=== PATIENT | male | born 2005 | race Caucasian/White ===

== ENCOUNTER 2025-01-25 11:17 | Outpatient (REF) | payer OTHER, SELFPAY ==
[2025-01-25 13:02] LABS: MANUAL DIFF FLAG NO
[2025-01-25 13:17] LABS: Basophils Percent Auto 0.5 % (0-2); Eosinophils Absolute Auto 0.2 X10*3/uL (0.0-0.4); Eosinophils Percent Auto 2.5 % (0-4); Hematocrit 44.1 % (42.0-52.0); Hemoglobin 14.6 g/dl (14.0-18.0); Imm Gran Abs Auto 0.02 X10*3/uL (0.00-0.03); Imm Gran Pct Auto 0.3 % (0.0-0.4); Lymphocytes Percent Auto 13.5 % (20-40); Mean Corpuscular HGB Conc 33.1 g/dl (31.0-36.0); Mean Corpuscular Hemoglobin 28.2 pg (27.0-33.0); Mean Corpuscular Volume 85.3 fL (80.0-98.0); Mean Platelet Volume 8.9 fL (9.4-12.4); Monocytes Absolute Auto 0.7 X10*3/uL (0.1-1.2); Monocytes Percent Auto 9.8 % (2-11); Neutrophils Absolute Auto 5.5 x10*3/uL (2.0-8.3); Neutrophils Percent Auto 73.4 % (45-73); Platelet Count 443 X10*3/uL (160-400); Red Blood Count 5.17 X10*6/uL (4.60-5.80); Red Cell Distribution Width 12.4 % (11.0-16.0); White Blood Count 7.5 X10*3/uL (4.8-10.8)
[2025-01-25 13:39] LABS: Alanine Aminotransferase 11 U/L (0-40); Albumin Level 4.3 g/dL (3.5-5.0); Alkaline Phosphatase 92 U/L (39-117); Anion Gap 11 (12-20); Aspartate Amino Transferase 17 U/L (5-37); Bilirubin Total 0.3 mg/dL (0.0-1.0); Blood Urea Nitrogen 8 mg/dL (9-16); Calcium 9.3 mg/dL (8.4-10.2); Carbon Dioxide 26 mmol/L (22-29); Chloride 106 mmol/L (96-108); Estimated Glomerular Filt Rate > 60; Glucose Random 95 mg/dL (60-115); Potassium 4.5 mmol/L (3.3-5.1); Sodium 138 mmol/L (135-145); Total Protein 8.7 g/dL (6.5-8.0)
--- OUTSIDE RECORDS SUMMARY | 2025-01-25 13:42 | XMS_ITS | Clinical Summary ---
Author Organization [facility] ity Address [address] [place] [address] Care Team Providers Care Rehabilitation Specialist Name Role Phone Unavailable Primary Care Provider Unavailabl e Social History Tobacco Use Types Packs/Day Years Used Date Smoking Tobacco: Never Assessed Sex and Gender Information Value Date Recorded Sex Assigned at Not on file Legal Sex Male 11:06 AM EDT Gender Identity Not on file Sexual Orientation Not on file Plan of Treatment Health Maintenance Due Date Last Done Comments Varicella Vaccines (1 of 2 - 13+ 2-dose series) 02/02/2017 HPV Vaccines (1 - Male 3-dos e series) 02/02/2019 Meningococcal B Vacine (1 of 2 - Standard) 2020 DTaP,Tdap,and Td Vaccines (1 - Tdap) 02/02/2023 Hepatitis B Vaccines (1 of 3 - 19+ 3-dose series) 02/02/2023 Annual Well Child Visit (3-2 1 years old) 06/21/2024 Depression Screening 06/21/2024 HIV Screening 06/21/2024 Hepatitis C Screening 06/21/2024 Social Influencers of Health Screening 06/21/2024 COVID-19 Vaccine (1 - 2023-2 5 season) 2024 Influenza Vaccine (#1) 2024 HIB Vaccines Aged Out No longer eligi ble based on patient's age to complete this topic Hepatitis A Vaccines Aged Out No long er eligible based on patient's age to complete this topic IPV Vaccines Aged Out No longer eligi ble based on patient's age to complete this topic MMR Vaccines Aged Out No longer eligi ble based on patient's age to complete this topic Meningococcal ACWY Vaccine Aged Out N o longer eligible based on patient's age to complete this topic Pneumococcal Vaccine: Pediat rics (0 to 5 Years) and At-Risk Patients (6 to 64 Years) Aged Out No longer eligible b ased on patient's age to complete this topic RSV Immunization Patients Un ricky 20 months Aged Out No longer eligible b ased on patient's age to complete this topic
[2025-01-26 07:54] LABS: Immunoglobulin A 206 mg/dL (47-310)
[2025-01-26 21:23] LABS: Gliadin Deamidated IgA Ab <1.0 U/mL; Gliadin Deamidated IgG Ab <1.0 U/mL; Transglutaminase Ab IgG <1.0 U/mL; Transglutaminase IgA <1.0 U/mL
[2025-01-30 23:52] LABS: Endomysial IgA Antibody Negative (Negative)
== END 2025-01-25 11:18 | disposition home or self-care (01) ==
LOC: HO.10HDL 11:17
PROVIDERS: Visit Provider Internal Medicine
DX: R10.9 Unspecified abdominal pain (principal); R14.0 Abdominal distension (gaseous); R63.4 Abnormal weight loss; Z00.6 Encounter for examination for normal comparison and control in clinical research program
CPT/HCPCS: 36415; 80053; 82784; 84443; 85025; 86231; 86258; 86364

== ENCOUNTER 2025-01-27 08:58 | Inpatient (IN) | payer OTHER, SELFPAY ==
--- NOTE | ~2025-01-27 | CT_ITS ---
EXAMINATION: CT ABDOMEN AND PELVIS WITH CONTRAST CLINICAL INFORMATION: Follow-up enteritis. COMPARISON: None available. TECHNIQUE: Multidetector volumetric images were obtained from the superior aspect of the liver through the pubic symphysis following administration 85 mL of Omnipaque 350 intravenous contrast. Sagittal and coronal reformatted images were obtained on the technologist's workstation. Oral contrast: No This CT examination was performed using dose optimization techniques as appropriate, variously including the following: *Automated exposure control *Adjustment of mA and/or kV according to patient size (this includes techniques or standardized protocols for targeted exams where dose is matched to indication/reason for exam; i.e. extremities or head) *Use of iterative reconstruction technique FINDINGS: LUNG BASES: The visualized lung bases are unremarkable. LIVER, GALLBLADDER, AND BILIARY TREE: The liver is normal in size, shape, and attenuation. There is a 9 mm hypodensity right posterior hepatic lobe adjacent to the diaphragm. No additional lesions seen. No intrahepatic ductal dilatation. Gallbladder is unremarkable with no evidence of radiopaque gallstones, gallbladder wall thickening, or obvious pericholecystic inflammatory changes. PANCREAS: Unremarkable. SPLEEN: Unremarkable. ADRENAL GLANDS: Unremarkable. KIDNEYS AND URETERS: The kidneys are normal in size, shape, and attenuation. No hydronephrosis, hydroureter, or calculi seen. No perinephric stranding. BLADDER: Unremarkable. GASTROINTESTINAL TRACT: The stomach is nondistended. Diffuse mural thickening involving second distal and terminal ileal segment in the right upper quadrant on image 43/95 and several additional segments of the right abdomen suggestive of inflammatory bowel disease. There is no extraluminal contrast seen to suspect any perforation. Mild prominence and dilation of the proximal ileal loops with oral contrast is noted. The jejunal loops are normal caliber. There is moderate stool in colon likely secondary to decreased peristalsis. ABDOMINAL WALL: No significant hernia is appreciated. LYMPH NODES: Normal. VASCULAR: The abdominal aorta is of normal caliber. PELVIC VISCERA: There is no free fluid. No abnormal pelvic lymph nodes. No hernia visualized. OSSEOUS STRUCTURES: No aggressive lytic or sclerotic process seen. CT/CT abdomen pelvis w IV con IMPRESSION: Diffuse mural thickening involving distal and terminal ileum with adjacent peritoneal fat stranding. There is mild prominence of the proximal ureter in jejunal loops. Some fecal residue is seen in the dilated segments of distal ileum. No extraluminal contrast extravasation seen. Findings consistent inflammatory bowel disease. No additional areas of abnormality seen. No radiopaque urolith or hydronephrosis. Mild constipation likely secondary to decreased peristalsis. Fleischner guidelines were followed. Electronically signed by: Abimael Martinez MD 01/30/2025 03:47 PM EST
--- NOTE | ~2025-01-27 | CT_ITS ---
CLINICAL HISTORY: abd pain, WBC count CT ABDOMEN AND PELVIS WITH CONTRAST Comparison: None Findings: The lung bases are clear. Unremarkable gallbladder and solid organs. No urolithiasis. No bowel obstruction, pneumoperitoneum, or pneumatosis. Multiple dilated and thick-walled small bowel loops inclusive of the terminal ileum are associated with diffuse mesenteric edema and numerous small reactive mesenteric lymph nodes. Mild ascites in the abdomen and pelvis with no definite organized fluid collection. Thick-walled appendix is identified. Prostate and urinary bladder unremarkable. The bones are intact. IMPRESSION: 1. Inflammatory changes throughout the small bowel with multiple dilated small bowel loops. Ileus versus partial/early small bowel obstruction. 2. Thick-walled appendix secondary to reactive changes versus primary appendicitis. 3. Mild ascites in the abdomen and pelvis. No definite peritoneal abscess. This document has been electronically signed by: Ashely Carney DO on 01/27/2025 14:54:10
[2025-01-27 09:20] VITALS: BP 144/95; PULSE 124; RESP 18; TEMP 36.6; O2SAT 98; BMI 24.6
[2025-01-27 10:27] LABS: Basophils Percent Auto 0.2 % (0-2); Eosinophils Percent Auto 0.1 % (0-4); Hematocrit 42.2 % (42.0-52.0); Hemoglobin 14.4 g/dl (14.0-18.0); Imm Gran Abs Auto 0.09 X10*3/uL (0.00-0.03); Imm Gran Pct Auto 0.5 % (0.0-0.4); Lymphocytes Absolute Auto 0.7 X10*3/uL (1.2-4.9); Lymphocytes Percent Auto 3.7 % (20-40); MANUAL DIFF FLAG SCAN; Mean Corpuscular HGB Conc 34.1 g/dl (31.0-36.0); Mean Corpuscular Hemoglobin 28.5 pg (27.0-33.0); Mean Corpuscular Volume 83.6 fL (80.0-98.0); Mean Platelet Volume 8.6 fL (9.4-12.4); Monocytes Absolute Auto 2.1 X10*3/uL (0.1-1.2); Monocytes Percent Auto 10.5 % (2-11); Neutrophils Absolute Auto 16.9 x10*3/uL (2.0-8.3); Platelet Count 376 X10*3/uL (160-400); Red Blood Count 5.05 X10*6/uL (4.60-5.80); Red Cell Distribution Width 12.5 % (11.0-16.0); SCAN SMEAR FLAG 1; White Blood Count 19.8 X10*3/uL (4.8-10.8)
[2025-01-27 10:28] LABS: Appearance Urine Clear; Color Urine Dark Yellow; Glucose Urine UA Negative (Negative); Leukocyte Esterase Urine Negative (Negative); Nitrite Urine Negative (Negative); PH 5.5 (5.0-9.0); Specific Gravity - Urine >= 1.030 (1.005-1.025); UMIC TRIGGER UACC YES; Urine Blood Negative (Negative); Urine Ketones >=160 mg/dL (Negative); Urine Protein 30 (1+) mg/dL (Neg-Trace)
[2025-01-27 10:40] LABS: Bacteria Urine None Seen (None Seen); Hyaline Casts Urine 0-2 /LPF (0-2); RBC Urine 0-2 /HPF (0-2); Squamous Epithelial Cell Urine 0-2 /HPF (0-2); WBC Urine 0-5 /HPF (0-5)
[2025-01-27 10:47] LABS: SLIDE REVIEW VERIFIED
[2025-01-27 10:53] LABS: Alanine Aminotransferase 6 U/L (0-40); Albumin Level 4.2 g/dL (3.5-5.0); Alkaline Phosphatase 95 U/L (39-117); Anion Gap 14 (12-20); Aspartate Amino Transferase 14 U/L (5-37); Bilirubin Direct 0.5 mg/dL (0.0-0.5); Bilirubin Total 1.1 mg/dL (0.0-1.0); Blood Urea Nitrogen 7 mg/dL (9-16); Calcium 9.5 mg/dL (8.4-10.2); Carbon Dioxide 22 mmol/L (22-29); Chloride 99 mmol/L (96-108); Estimated Glomerular Filt Rate > 60; Glucose Random 119 mg/dL (60-115); Lipase 9 U/L (8-78); Potassium 4.3 mmol/L (3.3-5.1); Sodium 131 mmol/L (135-145); Total Protein 8.6 g/dL (6.5-8.0)
[2025-01-27 12:15] LABS: Magnesium 1.8 mg/dL (1.6-2.6)
[2025-01-27] MEDS: Ketorolac Tromethamine 15 MG/ML VIAL IVPUSH (12:15)
[2025-01-27] MEDS: Lactated Ringers 1,000 ML 999 ML IV ×2 (12:15)
[2025-01-27] MEDS: Piperacillin Sodium/Tazobactam 3.375 GM in 0.9 % Sodium Chloride 50 ML IV ×2 (12:15→18:43)
[2025-01-27] MEDS: ondansetron HCL 4 MG/2 ML VIAL IVPUSH (12:16)
--- NOTE | 2025-01-27 12:30 | ED.ABDPAIN ---
HPI - Abdominal Pain General Chief Complaint: Abdominal Pain Stated Complaint: abd pain Time Seen by Provider: 01/27/25 11:54 Source: patient, family and old records reviewed Mode of arrival: ambulatory Limitations: no limitations History of Present Illness ED Provider: SUMANTH HPI narrative: 19 yo male with PMH of issues of bowel problems in past who states he had a normal colonoscopy recently with his doctor. He saw his PCP yesterday for lower abdominal pain and was started on bentyl - it is not helping. He feels like he cannot eat or drink now and didn't sleep due to pain last night. He has not had a fever. He has nausea but no vomiting and he denies diarrhea. He is passing gas. He has never had surgery. His pain is worse than usual. MD elicited complaint: abdominal pain Pertinent past history: none Onset (ago): week(s) Pain Consistency: intermittent Location: RLQ, LLQ and suprapubic Severity: severe Quality: aching Radiation: none Migration to: no migration Exacerbating factors: movement Relieving factors: nothing Context: history of similar episodes Associated symptoms: nausea Related Data Allergies Allergy/AdvReac Type Severity Reaction Status Date / Time No Known Allergies Allergy Verified 01/27/25 09:22 Review of Systems Review of Systems Constitutional : No Weight loss, No Fever, No Chills ENT/Mouth : No sore throat, No Rhinorrhea Eyes: No Swelling, No Redness Cardiovascular : No Chest Pain, No SOB, NoEdema Respiratory : No Cough, No Sputum, No Wheezing Gastrointestinal : Positive Nausea, no Vomiting, no Diarrhea, positive abdominal Pain, No Hematochezia, No Melena Genitourinary : No Dysuria, No Urinary Frequency, No Hematuria, No Urgency Musculoskeletal : No joint pain, No Myalgias, No Joint Swelling Skin : No Skin Lesions, No rash Neuro : No Weakness, No Numbness, No Dizziness, No Headache All other systems reviewed and are negative. [facility] Past Medical History Attestation statement: The following information was validated with the patient. Source: old records reviewed Medical History (Updated 01/27/25 @ 15:20 by Sona Elmore DO) IBS (irritable bowel syndrome) Social History Social History Advance Directives: No Advance Directives Information Provided: Yes Physical Exam ED Vital Signs: Vital Signs - 24 hr 01/27/25 09:20 Temperature 98 F Pulse Rate 124 H Respiratory Rate 18 Blood Pressure 144/95 H Pulse Oximetry 98 Oxygen Delivery Method Room Air BMI result Body Mass Index 24.6 Appearance: Alert. Oriented X3. No acute distress. Eyes: Pupils equal, round and reactive to light. ENT: Pharynx normal. Neck: Normal inspection. Neck supple. CVS: Normal heart rate and rhythm. Pulses normal. Respiratory: No respiratory distress. Breath sounds normal. Abdomen: Soft and moderate lower abdominal ttp mild guarding no rebound Skin: Skin warm and dry. Normal skin color. Normal skin turgor. Extremities: No lower extremity edema. No calf ttp Neuro: Oriented X 3. No motor deficit. No sensory deficit. CN2-12 intact Medical Decision Making Medical Decision Making [facility] Narrative: 19 yo male with hx of abdominal pain in the past now here with worsening of pain and cannot sleep he has moderate diffusely lower ttp at this time given his HR and elevated WBC count I have ordered IVF, zosyn in case of appendicitis, CT scan as well, IVF and IV toradol or pain. Possible appendicitis, mass, obstruction, renal colic, diverticular ds. Differential Diagnosis Differential Diagnoses: The differential diagnosis associated with the presentation includes colitis, appendicitis, obstruction, volvulus, diverticular disease Admission/Observation Consideration of admission/observation: Escalation of care including admission/observation considered Dr. Bhardwaj to admit patient Consult Healthcare Provider Management of the patient was discussed with: Information Assurance Manager Dr. Bhardwaj to admit Lab Data [facility] Lab Attestation statement: I reviewed the patient's lab results. 01/27/25 10:18 01/27/25 10:18 Labs: Lab Results 01/27/25 01/27/25 Range/Units 10:18 12:04 WBC 19.8 H (4.8-10.8) X10*3/uL RBC 5.05 (4.60-5.80) X10*6/uL Hgb 14.4 (14.0-18.0) g/dl Hct 42.2 (42.0-52.0) % MCV 83.6 (80.0-98.0) fL MCH 28.5 (27.0-33.0) pg MCHC 34.1 (31.0-36.0) g/dl RDW 12.5 (11.0-16.0) % Plt Count 376 (160-400) X10*3/uL MPV 8.6 L (9.4-12.4) fL Immature Gran % (Auto) 0.5 H (0.0-0.4) % Neut % (Auto) 85.0 H (45-73) % Lymph % (Auto) 3.7 L (20-40) % [place] % (Auto) 10.5 (2-11) % Eos % (Auto) 0.1 (0-4) % Baso % (Auto) 0.2 (0-2) % Lymph # (Auto) 0.7 L (1.2-4.9) X10*3/uL [place] # (Auto) 2.1 H (0.1-1.2) X10*3/uL Eos # (Auto) 0.0 (0.0-0.4) X10*3/uL Baso # (Auto) 0.0 (0.0-0.2) X10*3/uL Abs Immat Gran (auto) 0.09 H (0.00-0.03) X10*3/uL Absolute Neuts (auto) 16.9 H (2.0-8.3) x10*3/uL Absolute Nucleated RBC 0.000 (0.0-0.012) X10*3/uL Nucleated RBC % (auto) 0.0 (0.0-0.2) /100WBC Smear Tech's Comments VERIFIED Sodium 131 L (135-145) mmol/L Potassium 4.3 (3.3-5.1) mmol/L Chloride 99 (96-108) mmol/L Carbon Dioxide 22 (22-29) mmol/L Anion Gap 14 (12-20) BUN 7 L (9-16) mg/dL Creatinine 0.75 (0.5-1.4) mg/dL Estim Creat Clear Calc 152.0 Estimated GFR > 60 Random Glucose 119 H (60-115) mg/dL Lactic Acid 1.4 (0.5-2.0) mmol/L Calcium 9.5 (8.4-10.2) mg/dL Magnesium 1.8 (1.6-2.6) mg/dL Total Bilirubin 1.1 H (0.0-1.0) mg/dL Direct Bilirubin 0.5 (0.0-0.5) mg/dL AST 14 (5-37) U/L ALT 6 (0-40) U/L Alkaline Phosphatase 95 (39-117) U/L Total Protein 8.6 H (6.5-8.0) g/dL Albumin 4.2 (3.5-5.0) g/dL Lipase 9 (8-78) U/L Urine Color Dark Yellow Urine Appearance Clear Urine pH 5.5 (5.0-9.0) Ur Specific [place] >= 1.030 H (1.005-1.025) Urine Protein 30 (1+) H (Neg-Trace) mg/dL Urine Glucose (UA) Negative (Negative) mg/dL Urine Ketones >=160 (Negative) mg/dL Urine Blood Negative (Negative) Urine Nitrite Negative (Negative) Ur Leukocyte Esterase Negative (Negative) Urine RBC 0-2 (0-2) /HPF Urine WBC 0-5 (0-5) /HPF Ur Squamous Epith Cells 0-2 (0-2) /HPF Urine Bacteria None Seen (None Seen) Hyaline Casts 0-2 (0-2) /LPF Independent Interpretation I performed an independent interpretation of an: CT Scan (+ inflammed bowel) Radiology Impression Discussion of test interpretation with radiology: I have reviewed the radiologist's reading. Independent Historian Clinical information obtained from an independent historian. History obtained from or confirmed by: Parent Medications Administered Discontinued Medications Generic Name Dose Route Start Last Admin Trade Name Freq PRN Reason Stop Dose Admin Lactated Ringer's 1,000 mls @ 999 mls/hr 01/27/25 12:00 01/27/25 12:15 Lr IV 01/27/25 13:00 999 mls/hr .Q1H1M [place] Administration Piperacillin Sod/Tazobactam 50 mls @ 100 mls/hr 01/27/25 11:51 01/27/25 12:15 Sod 3.375 gm/ Sodium Chloride IV 01/27/25 12:20 100 mls/hr ONCE ONE Administration Lactated Ringer's 1,000 mls @ 999 mls/hr 01/27/25 11:55 01/27/25 12:15 Lr IV 01/27/25 12:55 999 mls/hr .Q1H1M ONE Administration Iohexol 85 ml 01/27/25 14:04 01/27/25 14:05 Iohexol 350 Mg/Ml 100 Ml Infus..Btl IV 01/27/25 14:05 85 ml ONCE ONE Administration Ketorolac Tromethamine 15 mg 01/27/25 11:50 01/27/25 12:15 Ketorolac Tromethamine 15 Mg/Ml Vial IVPUSH 01/27/25 11:51 15 mg ONCE ONE Administration Ondansetron HCl 4 mg 01/27/25 11:50 01/27/25 12:16 Ondansetron Hcl 4 Mg/2 Ml Vial IVPUSH 01/27/25 11:51 4 mg ONCE ONE Administration Discharge Plan Discharge Clinical Impression: Abdominal pain, Elevated WBC count, Nausea & vomiting Patient Disposition: Admitted As Inpatient Print Language: Estonian
[2025-01-27 12:37] LABS: Lactic Acid 1.4 mmol/L (0.5-2.0)
[2025-01-27] MEDS: iohexoL 350 MG/ML 100 ML INFUS..BTL 85 ML IV (14:05)
[2025-01-27] MEDS: Dextrose 5 % and Lactated Ring 1,000 ML 125 ML IVCONT (15:57)
[2025-01-27 16:09] VITALS: BP 128/75; PULSE 98; RESP 16; TEMP 38.2; O2SAT 99
[2025-01-27] MEDS: Acetaminophen 1,000 MG/100 ML PIGGYBACK 400 MG IV (16:14)
--- NOTE | 2025-01-27 17:06 | PHA.MEDREC ---
Addendum entered by Elina Curiel francisco 01/27/25 17:08: Reviewed by pharmacist Original Note: Pharmacy Consult ? Medication Reconciliation Pharmacy has completed the medication reconciliation. Spoke with patient to confirm. He said he started taking it , last had yesterday. He does not take any OTC.
[2025-01-27 18:46] VITALS: TEMP 37.3
[2025-01-27 20:31] VITALS: BP 127/69; PULSE 92; RESP 16; TEMP 37.4; O2SAT 99
[2025-01-28] VITALS (8 sets, daily range): BP systolic 108–135; BP diastolic 52–74; PULSE 77–108; RESP 14–20; TEMP 36.6–38.9; O2SAT 96–99; BMI 24.8
[2025-01-28] MEDS: Dextrose 5 % and Lactated Ring 1,000 ML 125 ML IVCONT ×4 (00:12→23:55)
[2025-01-28] MEDS: Piperacillin Sodium/Tazobactam 3.375 GM in 0.9 % Sodium Chloride 50 ML IV ×5 (00:13→23:55)
[2025-01-28] MEDS: 0.9 % Sodium Chloride Flush 3 ML SYRINGE IVFLUSH (00:13)
[2025-01-28] MEDS: Acetaminophen 1,000 MG/100 ML PIGGYBACK 400 MG IV ×2 (01:03→13:59)
[2025-01-28] MEDS: oxyCODONE HCl Immed Release 5 MG TABLET PO (06:21)
--- NOTE | 2025-01-28 06:54 | PC.NURSE ---
pt rested comfortably throughout the night, reports pain is much less than yesterday but did have pain while moving and palpating, pt medicated per MAR. pt has been NPO
[2025-01-28 07:02] LABS: MANUAL DIFF FLAG NO
[2025-01-28 07:04] LABS: Basophils Percent Auto 0.2 % (0-2); Eosinophils Percent Auto 0.3 % (0-4); Hemoglobin 12.2 g/dl (14.0-18.0); Imm Gran Abs Auto 0.05 X10*3/uL (0.00-0.03); Imm Gran Pct Auto 0.4 % (0.0-0.4); Lymphocytes Absolute Auto 0.8 X10*3/uL (1.2-4.9); Lymphocytes Percent Auto 6.2 % (20-40); Mean Corpuscular Volume 85.1 fL (80.0-98.0); Mean Platelet Volume 8.8 fL (9.4-12.4); Monocytes Absolute Auto 1.4 X10*3/uL (0.1-1.2); Monocytes Percent Auto 11.3 % (2-11); Neutrophils Absolute Auto 10.1 x10*3/uL (2.0-8.3); Neutrophils Percent Auto 81.6 % (45-73); Platelet Count 270 X10*3/uL (160-400); Red Blood Count 4.35 X10*6/uL (4.60-5.80); Red Cell Distribution Width 12.5 % (11.0-16.0); White Blood Count 12.4 X10*3/uL (4.8-10.8)
--- NOTE | 2025-01-28 08:06 | PM.HPGS ---
History of Present Illness History of Present Illness Date of Service: 01/28/25 Chief complaint: abdominal pain, possible appendicitis Narrative: 19-year-old male patient presenting with complaints of lower abdominal pain beginning approximately 2 days prior to presentation. The pain was associated with nausea without vomiting. The patient reports prior history of similar symptoms with intermittent sharp pain followed by resolution. She was recently admitted to [facility] at which point a colonoscopy was performed. This apparently revealed no significant findings. Patient's current episode started on and he was seen by his primary care physician. She placed him on Bentyl which has not changed his pain. He subsequently presented to the emergency department last evening and was noted to be tender in the lower abdomen. Laboratories revealed an elevated WBC. CT abdomen and pelvis was significant for inflammatory changes throughout the small bowel with multiple dilated small-bowel loops, possible ileus versus partial/early small-bowel obstruction. A thick-walled appendix was felt to be possibly secondary to reactive changes versus primary appendicitis. Mild ascites in the abdomen and pelvis was noted with no definite peritoneal abscess. He was admitted to the surgical service for IV antibiotics and observation. This morning he does feel improved with decreased abdominal pain. He is afebrile with stable vital signs. Laboratories revealed improvement in the WBC although still elevated. Review of Systems Review of Systems: Yes all other systems are reviewed and are negative Constitutional: Constitutional: Denies chills, Reports fever(s), Denies headache(s), Reports poor appetite and Denies weakness ENT: Denies headache(s) Cardiovascular: Cardiovascular: Denies chest pain, Denies irregular heart rhythm, Denies palpitations and Denies dyspnea Respiratory: Respiratory: Denies cough, Denies excessive phlegm production and Denies dyspnea Gastrointestinal: Gastrointestinal: Reports abdominal pain, Reports bloating, Denies change in bowel habits, Reports constipation, Denies heartburn, Denies diarrhea, Reports nausea and Denies vomiting Genitourinary: Genitourinary: Denies difficulty urinating and Denies urinary frequency Musculoskeletal: Musculoskeletal: Denies back pain, Denies muscle weakness and Denies numbness Integumentary/Breasts: Skin/Breast: Denies changing lesions and Denies unusual bruising Neurologic: Denies headache(s), Denies numbness, Denies paresthesias and Denies weakness Psychiatric: Psychiatric: Denies anxiety and Denies depression Endocrine: Endocrine: Denies palpitations Hematologic/Lymphatic: Hematologic/Lymphatic: Denies lymphadenopathy PMFSH Past Medical History Medical History (Updated 01/28/25 @ 08:12 by Nilton Bhardwaj MD) IBS (irritable bowel syndrome) Social History Social History Patient Tobacco Use Status: Never used Tobacco Smoked in Last 30 Days: No Use of substances other than those prescribed or required for medical reasons: No Advance Directives: No Advance Directives Information Provided: Yes Nutrition Risks: No Nutritional Risk Meds Allergies Allergy/AdvReac Type Severity Reaction Status Date / Time No Known Allergies Allergy Verified 01/27/25 09:22 Active Medications: Current Medications Hydromorphone HCl (Hydromorphone Hcl 0.5 Mg/0.5 Ml Syringe) 0.5 mg IVPUSH Q3H PRN; Protocol PRN Reason: Pain, Severe (Pain Scale 7-10) Acetaminophen (Ofirmev) 1,000 mg in 100 mls @ 400 mls/hr IV Q6H PRN PRN Reason: Pain, Mild 1-3,fever,headache Last Infusion: 01/28/25 01:28 Dose: Infused Dextrose/Lactated Ringer's (D5lr) 1,000 mls @ 125 mls/hr IVCONT .Q8H [facility] Last Admin: 01/28/25 00:12 Dose: 125 mls/hr Piperacillin Sod/Tazobactam (Sod 3.375 gm/ Sodium Chloride) 50 mls @ 100 mls/hr IV Q6H [facility] Last Infusion: 01/28/25 06:53 Dose: Infused Magnesium Hydroxide (Milk Of Magnesia 30 Ml Oral.Susp) 30 ml PO DAILY PRN PRN Reason: Constipation Ondansetron HCl (Ondansetron Hcl 4 Mg/2 Ml Vial) 4 mg IVPUSH QID PRN PRN Reason: Nausea Oxycodone HCl (Oxycodone Hcl Immed Release 5 Mg Tablet) 5 mg PO Q6H PRN PRN Reason: Pain, Moderate(Pain Scale 4-6) Last Admin: 01/28/25 06:21 Dose: 5 mg Sodium Chloride (0.9 % Sodium Chloride Flush 3 Ml Syringe) 3 ml IVFLUSH QSHIFT [facility] Last Admin: 01/28/25 07:53 Dose: Not Given Zolpidem Tartrate (Zolpidem Tartrate 5 Mg Tablet) 5 mg PO BEDTIME PRN PRN Reason: Insomnia Home Medications ?Medication ?Instructions ?Recorded ?Confirmed ?Last Taken ?Type dicyclomine 10 mg capsule 10 mg PO TID 01/27/25 01/27/25 01/26/25 History Physical Exam Vital Signs: Vital Signs: Last Vital Signs Temp 97.9 F 01/28/25 07:24 Pulse 89 01/28/25 07:24 Resp 20 01/28/25 07:24 BP 117/61 01/28/25 07:24 Pulse Ox 97 01/28/25 07:24 O2 Del Method Room Air 01/28/25 07:24 BMI result Body Mass Index 24.6 Const: General: cooperative and no acute distress Nutritional Appearance: thin Orientation/consciousness: patient oriented x3 Limitations: no limitations HEENT: Head: Yes normocephalic and Yes atraumatic Ears: hearing grossly normal bilaterally Resp: Effort & Inspection: normal respiratory effort, no audible wheezes, no cough and no respiratory distress Cardio: Jugular venous distension: no JVD GI: Inspection: Yes normal to inspection Palpation (GI): Soft to palpation, Tenderness to palpation present (GI) in the LLQ and in the RLQ, no guarding, not rigid and No hepatosplenomegaly present Percussion: Yes normal to percussion Auscultation: normal bowel sounds Skin: Other: Warm, dry, no rash Neuro: General: patient oriented x3 Extrem: General: Yes no clubbing, cyanosis or edema Results Results Labs: Short CBC 01/27/25 01/28/25 Range/Units 10:18 06:49 WBC 19.8 H 12.4 H (4.8-10.8) X10*3/uL Hgb 14.4 12.2 L (14.0-18.0) g/dl Hct 42.2 37.0 L (42.0-52.0) % Plt Count 376 270 D (160-400) X10*3/uL BMP 01/27/25 10:18 Sodium 131 L Potassium 4.3 Chloride 99 Carbon Dioxide 22 BUN 7 L Creatinine 0.75 Calcium 9.5 Liver Function 01/27/25 Range/Units 10:18 Total Bilirubin 1.1 H (0.0-1.0) mg/dL Direct Bilirubin 0.5 (0.0-0.5) mg/dL AST 14 (5-37) U/L ALT 6 (0-40) U/L Alkaline Phosphatase 95 (39-117) U/L Albumin 4.2 (3.5-5.0) g/dL Urine 01/27/25 Range/Units 10:18 Urine Color Dark Yellow Urine Appearance Clear Urine pH 5.5 (5.0-9.0) Ur Specific [place] >= 1.030 H (1.005-1.025) Urine Protein 30 (1+) H (Neg-Trace) mg/dL Urine Glucose (UA) Negative (Negative) mg/dL Abdomen CT scan report/results: image reviewed CT scan - pelvis: image reviewed Assessment and Plan (1) Nausea & vomiting: Qualifiers: Vomiting type: unspecified Qualified Code(s): R11.2 - Nausea with vomiting, unspecified Status: Acute (2) Abdominal pain: Qualifiers: Abdominal location: lower abdomen, unspecified Qualified Code(s): R10.30 - Lower abdominal pain, unspecified Status: Acute (3) Enteritis: Status: Acute Plan 19-year-old male patient with complaints of lower abdominal pain which has been intermittent over the last year. Previous workup with colonoscopy was negative. Evaluation in the emergency department revealed abdominal tenderness and laboratories revealed an elevated WBC. CT abdomen and pelvis revealed thickened loops of small bowel with dilated small bowel suggestive of a possible early small bowel obstruction verses ileus, although given his protracted history an enteritis is also possibility. There is changed to the appendix which may be secondary to the above or early appendicitis as well. He has improved this morning after IV antibiotics in the WBC has improved as well. I recommended consultation with Gastroenterology and continued antibiotics. The patient in his family expressed understanding and agree with the plan. I will keep him NPO and on IV fluids for now. Quality Stroke Does the patient have a stroke diagnosis?: No VTE Prior VTE?: No VTE Risk Level:: Surgical - low VTE Device Contraindication: N/A - Device Ordered VTE Drug Contraindication: Treatment Not Indicated Procedures Date of Service Date of Service: 01/28/25
--- NOTE | 2025-01-28 09:51 | PM.GICN ---
History of Present Illness Data of Consult Service Date: 01/28/25 Requesting physician: Nilton Bhardwaj Primary Care Provider: Sally Ortiz MD HPI Reason for consult: enteritis 19-year-old male patient previously well, with no significant health issues who I am seeing for abdominal pain. He noted 2 d of right lower abdo pain going into the back 6/10 in severity, worse with food and associated with constipation, and with nausea. He had CT imaging with multiple dilated small-bowel loops, possible ileus versus partial/early small-bowel obstruction. A thick-walled appendix was felt to be possibly secondary to reactive changes versus primary appendicitis. Mild ascites in the abdomen and pelvis was noted with no definite peritoneal abscess He had recent colonoscopy at [facility] apparently normal also with an EGD as well. He does say he has these attacks on and off for the last 2 years. Today he feels much better and castor no fever, with reduction in pain. Review of Systems Review of Systems: Constitutional : No Weight loss, No Fever, No Chills ENT/Mouth : No sore throat, No Rhinorrhea Eyes: No Swelling, No Redness Cardiovascular : No Chest Pain, No SOB, No Edema Respiratory : No Cough, No Sputum, No Wheezing Gastrointestinal : see HPI Genitourinary : NO Dysuria, No Urinary Frequency, No Hematuria, No Urgency Musculoskeletal : no joint pain, No Myalgias, No Joint Swelling Skin : No Skin Lesions, No rash Neuro : No Weakness, No Numbness, No Dizziness, No Headache Psych : No Anxiety/Panic, No Depression Heme/Lymph: No Bruising, No Lymphadenopathy Endocrine : No Polyuria, No Polydipsia All other systems reviewed and are negative. [facility] Past Medical History Medical History (Updated 01/28/25 @ 08:12 by Nilton Bhardwaj MD) IBS (irritable bowel syndrome) Family History Pertinent family history: no fh of ibd Social History Social History Household Members: Family Housing: House Do you presently have visiting nurse or other home services: No Patient Tobacco Use Status: Never used Tobacco Meds Allergies Allergy/AdvReac Type Severity Reaction Status Date / Time No Known Allergies Allergy Verified 01/27/25 09:22 Active Medications: Current Medications Hydromorphone HCl (Hydromorphone Hcl 0.5 Mg/0.5 Ml Syringe) 0.5 mg IVPUSH Q3H PRN; Protocol PRN Reason: Pain, Severe (Pain Scale 7-10) Acetaminophen (Ofirmev) 1,000 mg in 100 mls @ 400 mls/hr IV Q6H PRN PRN Reason: Pain, Mild 1-3,fever,headache Last Infusion: 01/28/25 01:28 Dose: Infused Dextrose/Lactated Ringer's (D5lr) 1,000 mls @ 125 mls/hr IVCONT .Q8H [facility] Last Admin: 01/28/25 08:08 Dose: 125 mls/hr Piperacillin Sod/Tazobactam (Sod 3.375 gm/ Sodium Chloride) 50 mls @ 100 mls/hr IV Q6H [facility] Last Infusion: 01/28/25 06:53 Dose: Infused Magnesium Hydroxide (Milk Of Magnesia 30 Ml Oral.Susp) 30 ml PO DAILY PRN PRN Reason: Constipation Ondansetron HCl (Ondansetron Hcl 4 Mg/2 Ml Vial) 4 mg IVPUSH QID PRN PRN Reason: Nausea Oxycodone HCl (Oxycodone Hcl Immed Release 5 Mg Tablet) 5 mg PO Q6H PRN PRN Reason: Pain, Moderate(Pain Scale 4-6) Last Admin: 01/28/25 06:21 Dose: 5 mg Sodium Chloride (0.9 % Sodium Chloride Flush 3 Ml Syringe) 3 ml IVFLUSH [facility] Last Admin: 01/28/25 07:53 Dose: Not Given Zolpidem Tartrate (Zolpidem Tartrate 5 Mg Tablet) 5 mg PO BEDTIME PRN PRN Reason: Insomnia Home Medications ?Medication ?Instructions ?Recorded ?Confirmed ?Last Taken ?Type dicyclomine 10 mg capsule 10 mg PO TID 01/27/25 01/27/25 01/26/25 History Physical Exam Vital Signs: Vital Signs: Last Vital Signs Temp 97.9 F 01/28/25 07:24 Pulse 89 01/28/25 07:24 Resp 20 01/28/25 07:24 BP 117/61 01/28/25 07:24 Pulse Ox 97 01/28/25 07:24 O2 Del Method Room Air 01/28/25 07:24 BMI result Body Mass Index 24.6 EXAM: GENERAL: The patient is well developed and nontoxic. VITAL SIGNS:see workflow HEENT: Nonicteric sclerae, PERRLA, EOMI. Oropharynx clear. Moist mucous membranes. Conjunctivae appear well perfused. No thyroid mass. CHEST: Chest wall is nontender. HEART: Regular rate and rhythm without murmurs. LUNGS: Clear to auscultation bilaterally. ABDOMEN: Soft, positive bowel sounds, tender RLQ, no organomegaly.no flank tenderness SKIN: No rash, no excessive bruising, petechiae, or purpura. NEUROLOGIC: Cranial nerves II-XII intact without motor/sensory deficit. Psych: normal affect Results Labs 01/28/25 06:49 01/27/25 10:18 Labs: Short CBC 01/27/25 01/28/25 Range/Units 10:18 06:49 WBC 19.8 H 12.4 H (4.8-10.8) X10*3/uL Hgb 14.4 12.2 L (14.0-18.0) g/dl Hct 42.2 37.0 L (42.0-52.0) % Plt Count 376 270 D (160-400) X10*3/uL BMP 01/27/25 10:18 Sodium 131 L Potassium 4.3 Chloride 99 Carbon Dioxide 22 BUN 7 L Creatinine 0.75 Calcium 9.5 Liver Function 01/27/25 Range/Units 10:18 Total Bilirubin 1.1 H (0.0-1.0) mg/dL Direct Bilirubin 0.5 (0.0-0.5) mg/dL AST 14 (5-37) U/L ALT 6 (0-40) U/L Alkaline Phosphatase 95 (39-117) U/L Albumin 4.2 (3.5-5.0) g/dL Urine 01/27/25 Range/Units 10:18 Urine Color Dark Yellow Urine Appearance Clear Urine pH 5.5 (5.0-9.0) Ur Specific [place] >= 1.030 H (1.005-1.025) Urine Protein 30 (1+) H (Neg-Trace) mg/dL Urine Glucose (UA) Negative (Negative) mg/dL Imaging CT scan - abdomen: Attestation: I personally reviewed and interpreted this imaging study as follows: (dilated and thcikened loops of small bowel, appendix as well) Assessment and Plan (1) Abdominal pain: Qualifiers: Abdominal location: lower abdomen, unspecified Qualified Code(s): R10.30 - Lower abdominal pain, unspecified Status: Acute Plan 1/ Imaging and clinical features 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 Appediceal involvement is rare but can occur. He may still need appendectomy ddx: vascultis, CTD, other infiltrative enteropathies e.g amyloid, lymphoma, sarcoid, eosinophilic, celiac disease, auto immune enteritis PLAN: 1/ cnt with ABX 2/ cnsider repeat CT imaging tomorrow, if appendix still enlarged then consider appendectomy 3/ hold on sterids for the moment 4 check celiac serology Procedures Date of Service Date of Service: 01/28/25
--- NOTE | 2025-01-28 16:25 | MHC.CM.PN ---
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
[2025-01-29] VITALS: BP 132/61; PULSE 84; RESP 16; TEMP 36.6; O2SAT 97
[2025-01-29] MEDS: oxyCODONE HCl Immed Release 5 MG TABLET PO (00:31)
[2025-01-29] MEDS: Piperacillin Sodium/Tazobactam 3.375 GM in 0.9 % Sodium Chloride 50 ML IV ×4 (05:37→23:59)
[2025-01-29 06:24] LABS: MANUAL DIFF FLAG NO
[2025-01-29 06:28] LABS: Basophils Percent Auto 0.3 % (0-2); Eosinophils Absolute Auto 0.2 X10*3/uL (0.0-0.4); Eosinophils Percent Auto 2.5 % (0-4); Hematocrit 32.5 % (42.0-52.0); Hemoglobin 10.9 g/dl (14.0-18.0); Imm Gran Abs Auto 0.05 X10*3/uL (0.00-0.03); Imm Gran Pct Auto 0.5 % (0.0-0.4); Lymphocytes Absolute Auto 0.9 X10*3/uL (1.2-4.9); Lymphocytes Percent Auto 9.6 % (20-40); Mean Corpuscular HGB Conc 33.5 g/dl (31.0-36.0); Mean Corpuscular Hemoglobin 28.9 pg (27.0-33.0); Mean Corpuscular Volume 86.2 fL (80.0-98.0); Mean Platelet Volume 9.5 fL (9.4-12.4); Monocytes Absolute Auto 1.1 X10*3/uL (0.1-1.2); Monocytes Percent Auto 11.1 % (2-11); Neutrophils Absolute Auto 7.2 x10*3/uL (2.0-8.3); Platelet Count 293 X10*3/uL (160-400); Red Blood Count 3.77 X10*6/uL (4.60-5.80); Red Cell Distribution Width 12.5 % (11.0-16.0); White Blood Count 9.5 X10*3/uL (4.8-10.8)
[2025-01-29 07:50] VITALS: BP 124/69; PULSE 77; RESP 16; TEMP 36.7; O2SAT 97
[2025-01-29] MEDS: Dextrose 5 % and Lactated Ring 1,000 ML 125 ML IVCONT ×2 (08:09→17:27)
--- NOTE | 2025-01-29 08:35 | P.PNGS_ITS ---
Subjective Subjective Date of Service: 01/29/25 Interval history: Overall patient feels improved but still is reporting some left lower quadrant abdominal pain. He has not very hungry but denies any nausea or vomiting. Physical Exam 2 Vital Signs: Vital Signs: Last Vital Signs Temp 98.1 F 01/29/25 07:50 Pulse 77 01/29/25 07:50 Resp 16 01/29/25 07:50 BP 124/69 01/29/25 07:50 Pulse Ox 97 01/29/25 07:50 O2 Del Method Room Air 01/29/25 07:50 BMI result Body Mass Index 24.8 Const: General: comfortable and no acute distress Nutritional Appearance: w ell nourished Orientation/consciousness: patient oriented x3 Resp: Effort & Inspection: normal respiratory effort GI: Inspection: Yes normal to inspection Palpation (GI): Soft to palpation, Tenderness to palpation present (GI) in the LLQ, no guarding, not rigid and No hepatosplenomegaly present Skin: General skin exam: no rashes or lesions noted Neuro: General: patient oriented x3 Extrem: General: No edema Objective Data Active Medications Hydromorphone HCl (Hydromorphone Hcl 0.5 Mg/0.5 Ml Syringe) 0.5 mg IVPUSH Q3H PRN; Protocol PRN Reason: Pain, Severe (Pain Scale 7-10) Acetaminophen (Ofirmev) 1,000 mg in 100 mls @ 400 mls/hr IV Q6H PRN PRN Reason: Pain, Mild 1-3,fever,headache Last Infusion: 01/28/25 14:48 Dose: Infused Documented By: SAMMY Dextrose/Lactated Ringer's (D5lr) 1,000 mls @ 125 mls/hr IVCONT .Q8H [facility] Last Admin: 01/29/25 08:09 Dose: 125 mls/hr Documented By: COURTNEY Piperacillin Sod/Tazobactam (Sod 3.375 gm/ Sodium Chloride) 50 mls @ 100 mls/hr IV Q6H [facility] Last Infusion: 01/29/25 06:15 Dose: Infused Documented By: NEHA Magnesium Hydroxide (Milk Of Magnesia 30 Ml Oral.Susp) 30 ml PO DAILY PRN PRN Reason: Constipation Ondansetron HCl (Ondansetron Hcl 4 Mg/2 Ml Vial) 4 mg IVPUSH QID PRN PRN Reason: Nausea Oxycodone HCl (Oxycodone Hcl Immed Release 5 Mg Tablet) 5 mg PO Q6H PRN PRN Reason: Pain, Moderate(Pain Scale 4-6) Last Admin: 01/29/25 00:31 Dose: 5 mg Documented By: NEHA Sodium Chloride (0.9 % Sodium Chloride Flush 3 Ml Syringe) 3 ml IVFLUSH [facility] Last Admin: 01/29/25 08:02 Dose: Not Given Documented By: COURTNEY Non-Admin Reason: IV Running Zolpidem Tartrate (Zolpidem Tartrate 5 Mg Tablet) 5 mg PO BEDTIME PRN PRN Reason: Insomnia Labs 01/29/25 05:23 01/27/25 10:18 Labs: Laboratory Results - last 24 hr 01/27/25 01/29/25 10:18 05:23 MCV 86.2 MCH 28.9 MCHC 33.5 RDW 12.5 Plt Count 293 MPV 9.5 Immature Gran % (Auto) 0.5 H Neut % (Auto) 76.0 H Lymph % (Auto) 9.6 L [place] % (Auto) 11.1 H Eos % (Auto) 2.5 Baso % (Auto) 0.3 Lymph # (Auto) 0.9 L [place] # (Auto) 1.1 Eos # (Auto) 0.2 Baso # (Auto) 0.0 Abs Immat Gran (auto) 0.05 H Absolute Neuts (auto) 7.2 Absolute Nucleated RBC 0.000 Nucleated RBC % (auto) 0.0 C-Reactive Protein 32.00 H Microbiology Microbiology Results: Microbiology 01/27/25 12:03 Blood Culture - Preliminary Blood - Venous No growth after 24 hours. 01/27/25 12:04 Blood Culture - Preliminary Blood - Venous No growth after 24 hours. Procedures Date of Service Date of Service: 01/29/25 Progress Note: A&P Assessment and plan (1) Enteritis: Status: Acute (2) Abdominal pain: Status: Acute Plan 19-year-old male patient with evidence of enteritis and changes in the appendix noted on admission CT abdomen and pelvis found to have an elevated WBC of 19. Patient currently feels improved with only some tenderness in the left lower quadrant on examination. Laboratories revealed normalization of the WBC. Appreciate Dr. Liriano's input. Continue antibiotics. We will start clear liquids today. Time Spent With Patient Time: Total time managing care of this patient today ____ minutes. Quality Stroke Does the patient have a stroke diagnosis?: No VTE Prior VTE?: No VTE Risk Level:: Surgical - low VTE Device Contraindication: N/A - Device Ordered VTE Drug Contraindication: Treatment Not Indicated
--- NOTE | 2025-01-29 14:31 | MHC.CM.PN ---
PT NOT MEDICALLY CLEAR, PER PN, PLAN TO CONTINUE ABX AND START CLEAR LIQUIDS TODAY DCP: HOME NO SERVICES VIA FAMILY TRANSPORT
--- NOTE | 2025-01-29 15:14 | P.PNGI_ITS ---
Subjective Subjective Date of Service: 01/29/25 Interval History: improved abdominal pain much less wants to advance diet no fever no nausea or vomiting Critical Care Time (minutes): 0 Physical Exam 2 Vital Signs: Vital Signs: Last Vital Signs Temp 98.1 F 01/29/25 07:50 Pulse 77 01/29/25 07:50 Resp 16 01/29/25 07:50 BP 124/69 01/29/25 07:50 Pulse Ox 97 01/29/25 07:50 O2 Del Method Room Air 01/29/25 07:50 BMI result Body Mass Index 24.8 EXAM: GENERAL: The patient is well developed and nontoxic. VITAL SIGNS:see workflow HEENT: Nonicteric sclerae, PERRLA, EOMI. Oropharynx clear. Moist mucous membranes. Conjunctivae appear well perfused. No thyroid mass. CHEST: Chest wall is nontender. HEART: Regular rate and rhythm without murmurs. LUNGS: Clear to auscultation bilaterally. ABDOMEN: Soft, positive bowel sounds, mildly tender mid abdomen, no organomegaly.no flank tenderness SKIN: No rash, no excessive bruising, petechiae, or purpura. NEUROLOGIC: Cranial nerves II-XII intact without motor/sensory deficit. Psych: normal affect Objective Data Labs 01/29/25 05:23 01/27/25 10:18 Labs: Laboratory Results - last 24 hr 01/27/25 01/29/25 10:18 05:23 WBC 9.5 RBC 3.77 L Hgb 10.9 L Hct 32.5 L MCV 86.2 MCH 28.9 MCHC 33.5 RDW 12.5 Plt Count 293 MPV 9.5 Immature Gran % (Auto) 0.5 H Neut % (Auto) 76.0 H Lymph % (Auto) 9.6 L [place] % (Auto) 11.1 H Eos % (Auto) 2.5 Baso % (Auto) 0.3 Lymph # (Auto) 0.9 L [place] # (Auto) 1.1 Eos # (Auto) 0.2 Baso # (Auto) 0.0 Abs Immat Gran (auto) 0.05 H Absolute Neuts (auto) 7.2 Absolute Nucleated RBC 0.000 Nucleated RBC % (auto) 0.0 C-Reactive Protein 32.00 H Microbiology Microbiology Results: Microbiology 01/27/25 12:04 Blood - Venous Blood Culture - Preliminary No growth after 48 hours. 01/27/25 12:03 Blood - Venous Blood Culture - Preliminary No growth after 48 hours. Procedures Date of Service Date of Service: 01/29/25 Progress Note: A&P Assessment and plan (1) Enteritis: Status: Acute Plan 1/ Acuite on chronic abdominal pain, possibly crohns disease, with appendiceal involvement, improved today PLAN: 1/ hold steroids for now 2/ cont with ABX, maybe consider steroids after few days, possibly o/p entyvio Time Spent With Patient Time: Total time managing care of this patient today ____ minutes. Quality Stroke Does the patient have a stroke diagnosis?: No VTE Prior VTE?: No VTE Risk Level:: Surgical - low VTE Device Contraindication: N/A - Device Ordered VTE Drug Contraindication: Treatment Not Indicated
[2025-01-29 16:00] VITALS: BP 129/72; PULSE 79; RESP 16; TEMP 36.9; O2SAT 96
[2025-01-30] VITALS: BP 122/66; PULSE 69; RESP 16; TEMP 37.1; O2SAT 98
[2025-01-30] MEDS: 0.9 % Sodium Chloride Flush 3 ML SYRINGE IVFLUSH ×2 (00:35→21:17)
[2025-01-30] MEDS: Piperacillin Sodium/Tazobactam 3.375 GM in 0.9 % Sodium Chloride 50 ML IV ×3 (05:25→17:46)
[2025-01-30] MEDS: Dextrose 5 % and Lactated Ring 1,000 ML 125 ML IVCONT (05:26)
[2025-01-30 07:44] VITALS: BP 135/77; PULSE 72; RESP 16; TEMP 36.4; O2SAT 97
--- NOTE | 2025-01-30 07:59 | P.PNGS_ITS ---
Subjective Subjective Date of Service: 01/30/25 Interval history: Patient reports feeling much improved this morning with no abdominal pain only some mild achiness. He was able to tolerate liquids without nausea or vomiting. Physical Exam 2 Vital Signs: Vital Signs: Last Vital Signs Temp 97.6 F 01/30/25 07:44 Pulse 72 01/30/25 07:44 Resp 16 01/30/25 07:44 BP 135/77 01/30/25 07:44 Pulse Ox 97 01/30/25 07:44 O2 Del Method Room Air 01/30/25 07:44 BMI result Body Mass Index 24.8 Const: General: comfortable and no acute distress Nutritional Appearance: w ell nourished Orientation/consciousness: patient oriented x3 Resp: Effort & Inspection: normal respiratory effort GI: Inspection: Yes normal to inspection Palpation (GI): Soft to palpation, Tenderness to palpation present (GI) in the LLQ, no guarding, not rigid and No hepatosplenomegaly present Skin: General skin exam: no rashes or lesions noted Neuro: General: patient oriented x3 Extrem: General: No edema Objective Data Active Medications Hydromorphone HCl (Hydromorphone Hcl 0.5 Mg/0.5 Ml Syringe) 0.5 mg IVPUSH Q3H PRN; Protocol PRN Reason: Pain, Severe (Pain Scale 7-10) Acetaminophen (Ofirmev) 1,000 mg in 100 mls @ 400 mls/hr IV Q6H PRN PRN Reason: Pain, Mild 1-3,fever,headache Last Infusion: 01/28/25 14:48 Dose: Infused Documented By: SAMMY Dextrose/Lactated Ringer's (D5lr) 1,000 mls @ 125 mls/hr IVCONT .Q8H [facility] Last Admin: 01/30/25 05:26 Dose: 125 mls/hr Documented By: SOHA Piperacillin Sod/Tazobactam (Sod 3.375 gm/ Sodium Chloride) 50 mls @ 100 mls/hr IV Q6H [facility] Last Infusion: 01/30/25 06:14 Dose: Infused Documented By: SOHA Magnesium Hydroxide (Milk Of Magnesia 30 Ml Oral.Susp) 30 ml PO DAILY PRN PRN Reason: Constipation Ondansetron HCl (Ondansetron Hcl 4 Mg/2 Ml Vial) 4 mg IVPUSH QID PRN PRN Reason: Nausea Oxycodone HCl (Oxycodone Hcl Immed Release 5 Mg Tablet) 5 mg PO Q6H PRN PRN Reason: Pain, Moderate(Pain Scale 4-6) Last Admin: 01/29/25 00:31 Dose: 5 mg Documented By: NEHA Sodium Chloride (0.9 % Sodium Chloride Flush 3 Ml Syringe) 3 ml IVFLUSH [facility] [place] Last Admin: 01/30/25 07:07 Dose: Not Given Documented By: COURTNEY Non-Admin Reason: IV Running Zolpidem Tartrate (Zolpidem Tartrate 5 Mg Tablet) 5 mg PO BEDTIME PRN PRN Reason: Insomnia Labs 01/29/25 05:23 01/27/25 10:18 Labs: Laboratory Results - last 24 hr 01/27/25 01/29/25 10:18 15:39 C-Reactive Protein 32.00 H 23.80 H Microbiology Microbiology Results: Microbiology 01/27/25 12:04 Blood Culture - Preliminary Blood - Venous No growth after 48 hours. 01/27/25 12:03 Blood Culture - Preliminary Blood - Venous No growth after 48 hours. Procedures Date of Service Date of Service: 01/30/25 Progress Note: A&P Assessment and plan (1) Enteritis: Status: Acute (2) Abdominal pain: Status: Acute Plan 19-year-old male patient with evidence of enteritis and changes in the appendix noted on admission CT abdomen and pelvis found to have an elevated WBC of 19. The patient's WBC has now normalized and his abdominal symptoms are improving. He tolerated clear liquids without nausea, vomiting or increased abdominal pain. We discussed repeating the CT abdomen and pelvis with contrast today to re- evaluate the area of possible enteritis and appendicitis. He expressed understanding and agrees with the plan. We will restart diet based on the CT findings. Time Spent With Patient Time: Total time managing care of this patient today ____ minutes. Quality Stroke Does the patient have a stroke diagnosis?: No VTE Prior VTE?: No VTE Risk Level:: Surgical - low VTE Device Contraindication: N/A - Device Ordered VTE Drug Contraindication: Treatment Not Indicated
[2025-01-30 08:27] LABS: HBS Num1 0.49 mIU/mL (0-7.99); HBc Num1 0.29 S/CO (0.00-0.79); HBsAGNum1 0.31 S/CO (0.00-0.99); Hepatitis A Antibody IgM 0.15 Index (0-0.79); Hepatitis B Core Antibody Nonreactive (Nonreactive); Hepatitis B Surface Antigen Negative (Negative); ~HepC Num1 0.18 S/CO (0.00-0.79); ~Hepatitis A Antibody IgM Nonreactive (Nonreactive); ~Hepatitis B Surface Antibody NONREACTIVE (Nonreactive); ~Hepatitis C Antibody Nonreactive (Nonreactive)
[2025-01-30] MEDS: iohexoL 350 MG/ML 100 ML INFUS..BTL IV (12:56)
[2025-01-30] MEDS: Barium Sulfate Oral (Mocha) 450 ML ORAL.SUSP 900 ML PO (12:57)
[2025-01-30 15:22] VITALS: BP 121/74; PULSE 70; RESP 18; TEMP 36.9; O2SAT 97
[2025-01-30] MEDS: Dextrose 5 % and Lactated Ring 1,000 ML 50 ML IVCONT (19:15)
[2025-01-30 19:27] VITALS: BP 125/58; PULSE 75; RESP 20; TEMP 37.1; O2SAT 98
[2025-01-30 23:29] VITALS: BP 120/57; PULSE 64; RESP 16; TEMP 36.5; O2SAT 96
[2025-01-31] MEDS: Piperacillin Sodium/Tazobactam 3.375 GM in 0.9 % Sodium Chloride 50 ML IV ×3 (00:01→12:10)
[2025-01-31 08:02] VITALS: BP 123/69; PULSE 74; RESP 18; TEMP 36.4; O2SAT 97
--- NOTE | 2025-01-31 12:28 | PM.PNGS ---
Subjective Subjective Date of Service: 01/31/25 Interval history: Feels well. Denies any abd pain. Has had two BMs, passing flatus. Tolerating liquids and feels hungry. Physical Exam Vital Signs: Vital Signs: Last Vital Signs Temp 97.6 F 01/31/25 08:02 Pulse 74 01/31/25 08:02 Resp 18 01/31/25 08:02 BP 123/69 01/31/25 08:02 Pulse Ox 97 01/31/25 08:02 O2 Del Method Room Air 01/31/25 08:02 BMI result Body Mass Index 24.8 Const: General: comfortable, no acute distress and alert GI: Inspection: Yes normal to inspection and No distended Palpation (GI): Soft to palpation, nontender and no guarding Skin: General skin exam: no rashes or lesions noted Objective Data Active Medications Hydromorphone HCl (Hydromorphone Hcl 0.5 Mg/0.5 Ml Syringe) 0.5 mg IVPUSH Q3H PRN; Protocol PRN Reason: Pain, Severe (Pain Scale 7-10) Acetaminophen (Ofirmev) 1,000 mg in 100 mls @ 400 mls/hr IV Q6H PRN PRN Reason: Pain, Mild 1-3,fever,headache Last Infusion: 01/28/25 14:48 Dose: Infused Documented By: SAMMY Dextrose/Lactated Ringer's (D5lr) 1,000 mls @ 50 mls/hr IVCONT .Q20H [facility] Last Admin: 01/30/25 19:15 Dose: 50 mls/hr Documented By: BETTYE Piperacillin Sod/Tazobactam (Sod 3.375 gm/ Sodium Chloride) 50 mls @ 100 mls/hr IV Q6H [facility] Last Admin: 01/31/25 12:10 Dose: 100 mls/hr Documented By: NAUN Magnesium Hydroxide (Milk Of Magnesia 30 Ml Oral.Susp) 30 ml PO DAILY PRN PRN Reason: Constipation Ondansetron HCl (Ondansetron Hcl 4 Mg/2 Ml Vial) 4 mg IVPUSH QID PRN PRN Reason: Nausea Oxycodone HCl (Oxycodone Hcl Immed Release 5 Mg Tablet) 5 mg PO Q6H PRN PRN Reason: Pain, Moderate(Pain Scale 4-6) Last Admin: 01/29/25 00:31 Dose: 5 mg Documented By: CASTILDaily Sodium Chloride (0.9 % Sodium Chloride Flush 3 Ml Syringe) [facility] Last Admin: 01/31/25 08:24 Dose: Not Given Documented By: NAUN Non-Admin Reason: IV Running Zolpidem Tartrate (Zolpidem Tartrate 5 Mg Tablet) 5 mg PO BEDTIME PRN PRN Reason: Insomnia Labs 01/29/25 05:23 01/27/25 10:18 Procedures Date of Service Date of Service: 01/31/25 Progress Note: A&P Assessment and plan (1) Enteritis: Status: Acute Plan Repeat CT scan yesterday shows persistent diffuse mural thickening but clinically patient is overall improved with resolution of his symptoms and good GI function. Will advance to solid diet and hopefully discharge later today with oral antibiotics if tolerating with outpatient GI follow up. Patient and father comfortable with plan. Time Spent With Patient Time: Total time managing care of this patient today ____ minutes. Quality Stroke Does the patient have a stroke diagnosis?: No VTE Prior VTE?: No VTE Risk Level:: Surgical - low VTE Device Contraindication: N/A - Device Ordered VTE Drug Contraindication: Treatment Not Indicated
--- NOTE | 2025-01-31 12:57 | P.DS_ITS ---
DS: Providers Provider Date of Service: 01/31/25 Date of admission: 01/27/25 15:17 Date of discharge: 01/31/25 Primary care physician: Sally Ortiz MD Attending physician on admission: Nilton Bhardwaj Consults: 01/28/25 08:04 Consult to Gastroenterology Routine Consulting Provider: Rox Liriano Reason for consultation: abdominal pain, possible enteritis Attending physician on discharge: Nilton Bhardwaj DS: Diagnosis Discharge Diagnosis (1) Enteritis: Status: Resolved DS: Summary Hospital Course Hospital Course: HPI AT ADMISSION: 19-year-old male patient presenting with complaints of lower abdominal pain beginning approximately 2 days prior to presentation. The pain was associated with nausea without vomiting. The patient reports prior history of similar symptoms with intermittent sharp pain followed by resolution. She was recently admitted to [facility] at which point a colonoscopy was performed. This apparently revealed no significant findings. Patient's current episode started on and he was seen by his primary care physician. She placed him on Bentyl which has not changed his pain. He subsequently presented to the emergency department last evening and was noted to be tender in the lower abdomen. Laboratories revealed an elevated WBC. CT abdomen and pelvis was significant for inflammatory changes throughout the small bowel with multiple dilated small-bowel loops, possible ileus versus partial/early small-bowel obstruction. A thick-walled appendix was felt to be possibly secondary to reactive changes versus primary appendicitis. Mild ascites in the abdomen and pelvis was noted with no definite peritoneal abscess. This morning he does feel improved with decreased abdominal pain. He is afebrile with stable vital signs. Laboratories revealed improvement in the WBC although still elevated. HOSPITAL COURSE: He was admitted to the surgical service for IV antibiotics and observation. Consultation with Gastroenterology was obtained who felt imaging and clinical features most consistent with relapsing and remitting type of crohns. They recommended continuing conservative measures. The patient had improvement symptomatically. His WBC normalized. He had repeat CT scan abd/pelvis which showed the persistent diffuse mural thickening however his symptoms had resolved and therefore his diet was advanced. On the day of discharge, he was tolerating a solid diet without nausea/vomiting or abdominal pain. He had good GI function. He was hemodynamically stable and his abdomen was benign and soft, nontender. He felt ready for discharge. He was discharged to home on 01/31/25 in stable condition on a course of oral antibiotics and steroid taper. He is to follow up in the office with GI for outpatient EGD/colonoscopy and likely entyvio. Status at Discharge Functional status at discharge: independent ambulation Overall status at discharge: patient is progressing back to baseline Time Attestation Discharge Coordination Time (in mins): 35 Quality: Safe Use of Opioids Does Pt have an Active Cancer Diagnosis on the Problem List?: No Quality: Stroke Does the patient have a stroke diagnosis?: No Physical Exam Vital Signs: Vital Signs: Last Vital Signs Temp 97.6 F 01/31/25 08:02 Pulse 74 01/31/25 08:02 Resp 18 01/31/25 08:02 BP 123/69 01/31/25 08:02 Pulse Ox 97 01/31/25 08:02 O2 Del Method Room Air 01/31/25 08:02 BMI result Body Mass Index 24.8 Const: General: comfortable, no acute distress and alert Orientation/consciousness: patient oriented x3 Resp: Effort & Inspection: normal respiratory effort GI: Inspection: Yes normal to inspection and No distended Palpation (GI): Soft to palpation, nontender and no guarding Skin: General skin exam: no rashes or lesions noted Neuro: General: patient oriented x3 and moves all extremities DS: Data Data Completed and Pending Labs on day of discharge: Laboratory Results - last 24 hr 01/30/25 09:13 TB Test (T-Spot) Com Negative TB Test Nil Control Passed TB Test Panel A 0 TB Test Panel B 1 TB Test Positive Cntrl Passed Discharge Plan Discharge Anticipated Discharge Date/Time: 01/31/25 11:48 Patient Disposition: Home, Self-Care Discharge Diagnosis: enteritis Referrals: Sally Ortiz MD [Primary Care Provider] - 1 Week Rox Liriano MD [Physician] - 1 Week Discharge Medications: New metronidazole 500 mg tablet 500 mg PO TID Qty: 21 0RF levofloxacin 500 mg tablet 500 mg PO DAILY Qty: 7 0RF prednisone 5 mg tablet 5 mg PO DIRECTED Qty: 168 0RF Rx Instructions: see taper instructions 40mg (8 tabs) daily x 1 week 30mg (6 tabs) daily x 1 week 20mg (4 tabs) daily x 1 week 15mg (3 tabs) daily x 1 week 10mg (2 tabs) daily x 1 week 5mg (1 tab) daily x 1 week Continued dicyclomine 10 mg capsule 10 mg PO TID Discharge Orders: Discharge Order (Routine); Ordered 01/31/25 Ordered By: Rosario Fernandes Diet: Advance to usual diet Activity on Discharge: As tolerated Stand Alone Forms: Patient Portal Discharge page, Work/School Release Print Language: Khmer Activity Restrictions/Additional Instructions: Follow up with Dr. Liriano (gastroenterology) Call Your Doctor If: ? ? -Your temperature exceeds 101.5? F? ? ? -You experience excessive pain or swelling ? ? -You have an unexpected reaction to medication ? ? -You experience continued vomiting/nausea Care Plan Goals: Return to baseline health and resume normal activities. Health Concerns: enteritis, IBD Plan of Treatment: IV abx transitioned to oral F/u with gastroenterology Assessment: Improved Discharge Date/Time: 01/31/25 15:04
--- NOTE | 2025-01-31 13:23 | P.PNGI_ITS ---
Subjective Subjective Date of Service: 01/31/25 Interval History: feeling mucvh better no abdominal pain havign diarrheal stools no fever managing PO diet Critical Care Time (minutes): 0 Physical Exam 2 Vital Signs: Vital Signs: Last Vital Signs Temp 97.6 F 01/31/25 08:02 Pulse 74 01/31/25 08:02 Resp 18 01/31/25 08:02 BP 123/69 01/31/25 08:02 Pulse Ox 97 01/31/25 08:02 O2 Del Method Room Air 01/31/25 08:02 BMI result Body Mass Index 24.8 EXAM: GENERAL: The patient is well developed and nontoxic. VITAL SIGNS:see workflow HEENT: Nonicteric sclerae, PERRLA, EOMI. Oropharynx clear. Moist mucous membranes. Conjunctivae appear well perfused. No thyroid mass. CHEST: Chest wall is nontender. HEART: Regular rate and rhythm without murmurs. LUNGS: Clear to auscultation bilaterally. ABDOMEN: Soft, positive bowel sounds, nontender, no organomegaly.no flank tenderness SKIN: No rash, no excessive bruising, petechiae, or purpura. NEUROLOGIC: Cranial nerves II-XII intact without motor/sensory deficit. Psych: normal affect Objective Data Labs 01/29/25 05:23 01/27/25 10:[address] scan - abdomen: Attestation: I personally reviewed and interpreted this imaging study as follows: (f/u CT with small bowel thickening and mild stranding patchy -mid and distal ) Microbiology Microbiology Results: Microbiology 01/27/25 12:04 Blood - Venous Blood Culture - Preliminary No growth after 48 hours. 01/27/25 12:03 Blood - Venous Blood Culture - Preliminary No growth after 48 hours. Procedures Date of Service Date of Service: 01/31/25 Progress Note: A&P Assessment and plan (1) Enteritis: Status: Acute Plan 1/ Small bowel enteritis, suspected crohns with 2 yr hx of recurrent abdominal pains PLAN: 1/ DC on ABX and pred taper 2/ o/p EGD and colo 3/ entyvio Time Spent With Patient Time: Total time managing care of this patient today ____ minutes. Quality Stroke Does the patient have a stroke diagnosis?: No VTE Prior VTE?: No VTE Risk Level:: Surgical - low VTE Device Contraindication: N/A - Device Ordered VTE Drug Contraindication: Treatment Not Indicated
--- NOTE | 2025-01-31 15:05 | MHC.CM.PN ---
Patient is discharged to home self care. He will arrange for transport home.
[2025-02-02 11:49] LABS: TS Negative Control Passed; TS Panel A 0; TS Panel B 1; TS Positive Control Passed; TSpotTB Negative (Negative)
== END 2025-01-31 15:04 | disposition home or self-care (01) | DRG 387 ==
LOC: HO.ED 15:20 → HO.EDOVER 15:26 → HO.S3 01-28 12:00
PROVIDERS: Internal Medicine Gastroenterology; Physician Assistant; Admitting Provider Surgery; Emergency Provider Emergency Medicine; PCP Internal Medicine; Visit Provider Surgery
DX: K50.90 Crohn's disease, unspecified, without complications (principal); Z79.899 Other long term (current) drug therapy
CPT/HCPCS: 36415; 74177; 80048; 80076; 81001; 83605; 83690; 83735; 85025; 86140; 86481; 86704; 86706; 86709; 86803; 87040; 87340; 99285; J0131; J1885; J2405; J2543; J7120; Q9967

== ENCOUNTER → 2025-01-27 11:50 | Outpatient (BNV) | payer OTHER, SELFPAY | PROVIDERS: Emergency Provider Emergency Medicine; PCP Internal Medicine; Visit Provider Radiology Diagnostic Radiology | DX: R10.9 Unspecified abdominal pain (principal) | CPT/HCPCS: 74177 ==

== ENCOUNTER 2025-01-27 15:17 | Outpatient (BNV) | payer OTHER, SELFPAY | END 2025-01-30 12:46 | PROVIDERS: Admitting Provider Surgery; Emergency Provider Emergency Medicine; PCP Internal Medicine; Visit Provider Radiology Diagnostic Radiology | DX: K51.90 Ulcerative colitis, unspecified, without complications (principal) | CPT/HCPCS: 74177 ==

== ENCOUNTER → 2025-01-27 15:17 | Outpatient (BNV) | payer OTHER, SELFPAY | PROVIDERS: Admitting Provider Surgery; Emergency Provider Emergency Medicine; PCP Internal Medicine; Visit Provider Internal Medicine Gastroenterology | DX: K52.9 Noninfective gastroenteritis and colitis, unspecified (principal) | CPT/HCPCS: 99223; 99232 ==

== ENCOUNTER → 2025-01-27 15:17 | Outpatient (BNV) | payer OTHER, SELFPAY | PROVIDERS: Admitting Provider Surgery; Emergency Provider Emergency Medicine; PCP Internal Medicine; Visit Provider Surgery | DX: K52.9 Noninfective gastroenteritis and colitis, unspecified (principal) | CPT/HCPCS: 99222; 99232; 99239; 99499 ==

== ENCOUNTER 2025-06-04 12:40 | Outpatient (AMB) | payer OTHER, SELFPAY ==
--- NOTE | 2025-06-04 13:01 | A.OFFVIS_ITS ---
Vital Signs 06/04/25 13:02 Height 5 ft 8 in Weight 149 lb BMI 22.7 Blood Pressure Location Lt brachial Position Sitting Intake Visit Reasons: ED follow up , Suspect Chrohns Intake Note: Misael presents in the office as a follow up to his ED stay - suspects Crohns. CC: Pains in the stomach are continuing. Pains every day and he goes to the bathroom notal. Losing appetite. LLQ pains and when there is a grumble he gets a pain with the grumblle. Product Transfer Pumper Required: No Allergies No Known Allergies Allergy (Verified 06/04/25 13:01) HPI HPI ED follow up , Suspect Chrohns: Details: 20-year-old male patient previously well, with no significant health issues who I am seeing for f/u. I saw him as in patient 01/2025 for abdominal pain and abn imaging, concern for IBD He noted 2 d of right lower abdo pain going into the back 6/10 in severity, worse with food and associated with constipation, and with nausea. He had CT imaging with multiple dilated small-bowel loops, possible ileus versus partial/early small-bowel obstruction. He had colo at [facility] apparently normal also with an EGD as well. He does say he has these attacks on and off for the last 2 years. INTERIM: He was supposed to start entyvio nurse could not get hold of him he has 5/10 abdominal pain left pain he has poor appetite nausea no diarrhea no blood in stool EXAM: GENERAL: The patient is well developed and nontoxic. VITAL SIGNS:see workflow HEENT: Nonicteric sclerae, PERRLA, EOMI. Oropharynx clear. Moist mucous membranes. Conjunctivae appear well perfused. No thyroid mass. CHEST: Chest wall is nontender. HEART: Regular rate and rhythm without murmurs. LUNGS: Clear to auscultation bilaterally. ABDOMEN: Soft, positive bowel sounds, nontender, no organomegaly.no flank ten derness SKIN: No rash, no excessive bruising, petechiae, or purpura. NEUROLOGIC: Cranial nerves II-XII intact without motor/sensory deficit. Psych: normal affect A/P: 1/ Crohns based on imaging appearances, PLAN: /1 - short course of pred 40 mg and commence entyvio 2/ EGD amd colo for re assessment -[facility] Medical History IBS (irritable bowel syndrome) Surgical History Hx of colonoscopy History of esophagogastroduodenoscopy (EGD) Social History Household Members: Family Housing: House Do you presently have visiting nurse or other home services: No Patient Tobacco Use Status: Never used Tobacco service: No Physical Exam Vital Signs: BMI result Body Mass Index 22.7 Assessment & Plan Assessment & Plan (1) Crohn's disease: Code(s): K50.90 - Crohn's disease, unspecified, without complications Category: Medical Plan: as above Medications: New sodium,potassium,mag sulfates 17.5-3.13-1.6 gram (Suprep Bowel Prep Kit) DILUTE; drink 1/2 at 6-8 pm and half at 11 PM- 1AM 354 mL 0RF prednisone 40 mg (2 x 20 mg) PO DAILY 14 tabs 0RF Coding Level of Care Code Est Pt Level 3 (45754) Diagnoses Crohn's disease K50.90
[2025-06-04 13:02] VITALS: BMI 22.7
--- OUTSIDE RECORDS SUMMARY | 2025-06-04 13:14 | XMS_ITS | Clinical Summary ---
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 Phone Unavailable Primary Care Provider Unavailabl e Social History Tobacco Use Types Packs/Day Years Used Date Smoking Tobacco: Never Assessed Sex and Gender Information Value Date Recorded Sex Assigned at Not on file Legal Sex Male 11:06 AM EDT Gender Identity Not on file Sexual Orientation Not on file Plan of Treatment Health Maintenance Due Date Last Done Comments HPV Vaccines (1 - Male 3-dos e series) 02/02/2019 Meningococcal B Vaccine (1 o f 2 - Standard) 2020 DTaP,Tdap,and Td Vaccines (1 - Tdap) 02/02/2023 Hepatitis B Vaccines (1 of 3 - 19+ 3-dose series) 02/02/2023 Annual Well Child Visit (3-2 1 years old) 06/21/2024 Depression Screening 06/21/2024 HIV Screening 06/21/2024 Hepatitis C Screening 06/21/2024 Social Influencers of Health Screening 06/21/2024 COVID-19 Vaccine (1 - 2023-2 5 season) 2024 Influenza Vaccine (Season Ended) 2025 HIB Vaccines Aged Out No longer eligi [...] 5 Years) and At-Risk Patients (6 to 49 Years) Aged Out No longer eligible b ased on patient's age to complete this topic RSV Immunization Patients Un ricky 20 months Aged Out No longer eligible b ased on patient's age to complete this topic Varicella Vaccines Aged Out No longer eligible based on patient's age to complete this topic
== END 2025-06-04 13:23 | disposition home or self-care (01) ==
LOC: HO.HGI 12:40
PROVIDERS: PCP Internal Medicine; Visit Provider Internal Medicine Gastroenterology
DX: K50.90 Crohn's disease, unspecified, without complications (principal)
CPT/HCPCS: 99213

== ENCOUNTER 2025-06-12 07:51 | Day surgery (SDC) | payer OTHER, SELFPAY ==
--- OUTSIDE RECORDS SUMMARY | 2025-06-11 15:37 | XMS_ITS | Clinical Summary ---
Author Organization [facility] Address [address] [place] [address] Care Team Providers Care [facility] Director Name Role Phone Unavailable Primary Care Provider [...] 2023-2 5 season) 2024 Influenza Vaccine (#1) 2025 HIB Vaccines Aged Out No longer [...]
[2025-06-12 08:51] VITALS: BP 139/85; PULSE 72; RESP 16; TEMP 36.8; O2SAT 98; BMI 22.9
[2025-06-12] MEDS: Lactated Ringers 1,000 ML 100 ML IVCONT (08:52)
--- NOTE | 2025-06-12 09:41 | MHC.SHP ---
Pre-Procedural Eval Section A - 24 Hr Update-Section A only Date of Service: 06/12/25 The patient is an INPATIENT: No The patient has been examined within 24 hours of the surgical procedure. The History & Physical has been completed within 30 days and I have reviewed it.: Yes Section B - Complete if H&P > 30 days Chief Complaint: Crohn's disease, unspecified, without complication Allergies: Allergies Allergy/AdvReac Type Severity Reaction Status Date / Time No Known Allergies Allergy Verified 06/04/25 13:01 Plan Diagnosis/Plan: Unchanged I have reviewed the history and physical and performed a pertinent physical examination on my patient. No changes have occurred unless specified. Time Spent With Patient Time: Total time managing care of this patient today ____ minutes.
--- NOTE | 2025-06-12 10:37 | HO.ANESPROP2 ---
HPI - Anesthesia Eval Consult details Narrative: 20 M for EGD/colon PMFSH Active Problems Active Problems: All Active Problems (Updated 02/06/25 @ 11:41 by Rox Liriano MD) Crohn's disease (Acute) Past Medical History Medical History IBS (irritable bowel syndrome) Family History Family history of problems with anesthesia: No Surgical History Surgical History Hx of colonoscopy History of esophagogastroduodenoscopy (EGD) History of Problems with Anesthesia: No Social History Social History Household Members: Family Housing: House Do you presently have visiting nurse or other home services: No Patient Tobacco Use Status: Never used Tobacco Use of substances other than those prescribed or required for medical reasons: No Advance Directives: No Advance Directives Information Provided: Yes service: No Meds Allergies Allergy/AdvReac Type Severity Reaction Status Date / Time No Known Allergies Allergy Verified 06/04/25 13:01 Active Medications: Current Medications Lactated Ringer's (Lr) 1,000 mls @ 100 mls/hr IVCONT .Q10H [place] Last Admin: 06/12/25 08:52 Dose: 100 mls/hr Exam Height,Weight and Vital Signs: Height 5 ft 8 in Weight 150 lb 12.739 oz Last Vital Signs Temp 98.3 F 06/12/25 08:51 Pulse 72 06/12/25 08:51 Resp 16 06/12/25 08:51 BP 139/85 06/12/25 08:51 Pulse Ox 98 06/12/25 08:51 O2 Del Method Room Air 06/12/25 08:51 Airway Mallampati Class: I TM Dist: >3cm Loose/Missing/Broken Teeth: No Assessment and Plan Assessment Anesthesia Assessment: Anesthesia Plan Discussed and Chart Reviewed Final Anesthetic Review Family History of Problems with Anesthesia: No History of Problems with Anesthesia: No NPO: Yes ASA Class: I Final Preanesthetic Review: No Changes in Pt Med Stat, Meds/Allgs Chart Reviewed, Consent Obtained/Reviewed and Anes Risks/Benef Reviewed Patient Risk: Low Procedure Risk: Low Anesthetic Plan Anesthetic Plan: MAC: Disposition: Standard PACU
--- NOTE | 2025-06-12 10:47 | P.OPN-COLO_ITS ---
Colonoscopy Operative Note Operative Note Date of Service: 06/12/25 Narrative: Operative Information Procedure Description: EGD, Colonoscopy Indication: colitis Anesthesia: MAC FLEXIBLE TRANSORAL UPPER GASTROINTESTINAL ENDOSCOPY AND COLONOSCOPY PROCEDURE NOTE UPPER ENDOSCOPY Consent: Indications for the procedure and potential complications of bleeding, perforation, reaction to medications and missed diagnosis were discussed with the patient and informed consent was obtained. Instrument: Olympus GIF H 190 J mid size upper endoscope Monitoring: Vital signs and clinical assessment, continuous EKG monitoring, Pulse oximetry, Carbon Dioxide monitoring and blood pressure monitoring were done throughout the procedure. Procedure: The patient was placed in the left lateral decubitis position and pre-procedure medications were administered and a bite block was placed. The endoscope was inserted into the mouth and advanced under direct vision to the third part of duodenum. A careful inspection was made as the upper endoscope was withdrawn including a retroflexed examination of the proximal stomach; Findings and interventions are described below. Findings: Larynx:normal Esophagus: GE junction at 40 cm, diaphragm hiatus at 40 cm, erosive esophagitis streaks LA grade A, lax LES Stomach: Normal mucosa. Biopsies were obtained. Grade 2 flap valve on retroflexed examination of the cardia. bx taken Duodenum: Normal bulb and descending duodenum, bx taken Intervention: Biopsies as noted above, COLONOSCOPY Instrument: Olympus variable stiffness pediatric scope 190L Colonoscopy Monitoring: Vital signs and clinical assessment, continuous EKG monitoring, Pulse oximetry, Carbon Dioxide monitoring and blood pressure monitoring were done throughout the procedure. Colon withdrawal time was 15 minutes. Procedure: The patient was placed in the left lateral decubitis position and pre-procedure medications were administered. After a digital rectal examination of the ano-rectum, the video colonoscope was inserted into the rectum and advanced through the colon to the cecum/TI. The colonoscope was slowly withdrawn in a retrograde panoramic fashion and the colon mucosa was carefully examined including a retroflexed view of the rectum. Findings and interventions are described below. Procedure Difficulty:moderate Findings: Terminal Ileum-normal, bx taken Random bx taken from right, left colon Cecum:normal Ascending Colon: normal Transverse Colon -normal Descending Colon:normal Sigmoid Colon: normal Rectum: Retroflexion not done, looked normal Anorectum - normal Colon preparation: [place] Bowel Preparation Scale Right colon; 1 Transverse colon: 1 Left colon; 1 (0 = Unprepared colon segment with mucosa not seen due to solid stool that cannot be cleared. 1 = Portion of mucosa of the colon segment seen, but other areas of the colon segment not well seen due to staining, residual stool and/or opaque liquid. 2 = Minor amount of residual staining, small fragments of stool and/or opaque liquid, but mucosa of colon segment seen well. 3 = Entire mucosa of colon segment seen well with no residual staining, small fragments of stool or opaque liquid) Impression and Post Procedure Diagnosis: Endoscopy Findings: erosive esophagitis lax LES Colonoscopy Findings: poor prep Plan: Await Pathology results Repeat Colonoscopy \as needed High fiber diet leaflet avoid straining at stool, epsom salts and sitz bath, anusol supps or cream await commencement of entyvio GERD precautions and PPI Above findings were reviewed with the patient and relevant handouts were provided if indicated.
[2025-06-12 10:50] VITALS: BP 115/70; PULSE 70; RESP 14; TEMP 36.1; O2SAT 97
[2025-06-12 11:05] VITALS: BP 113/71; PULSE 55; RESP 14; O2SAT 99
[2025-06-12 11:20] VITALS: BP 123/83; PULSE 61; RESP 16; TEMP 36.2; O2SAT 100
== END 2025-06-12 12:16 | disposition home or self-care (01) ==
PROVIDERS: Visit Provider Internal Medicine Gastroenterology
PROC: (CPT 45380; principal; 2025-06-12 10:00)
DX: K50.90 Crohn's disease, unspecified, without complications (principal); Z91.199 Patient's noncompliance with other medical treatment and regimen due to unspecified reason; K22.10 Ulcer of esophagus without bleeding; K22.4 Dyskinesia of esophagus
CPT/HCPCS: 45380; 43239; 88305; 88313; 88342; J2003; J2704

== ENCOUNTER → 2025-06-12 07:51 | Outpatient (BNV) | payer OTHER, SELFPAY | PROVIDERS: Visit Provider Internal Medicine Gastroenterology | DX: K50.90 Crohn's disease, unspecified, without complications (principal); Z91.199 Patient's noncompliance with other medical treatment and regimen due to unspecified reason; K20.90 Esophagitis, unspecified without bleeding; K22.4 Dyskinesia of esophagus | CPT/HCPCS: 43239; 45380 ==

== ENCOUNTER 2025-08-06 09:23 | Outpatient (AMB) | payer OTHER, SELFPAY ==
--- NOTE | 2025-08-06 09:25 | A.OFFVIS_ITS ---
Vital Signs 08/06/25 09:30 Height 5 ft 8.5 in Weight 158 lb 11.725 oz BMI 23.8 BP 145/91 H Blood Pressure Location Lt brachial Position Sitting Pulse 64 Intake Visit Reasons: 8 week follow up Intake Note: Misael presents in the office as a 8 week follow up. CC: States that the last month he has no pain but his stomach is always gurgling but not hungry. He states once in a while the sounds in the stomach have some pains along with them. Physician Assistant Certified Required: No Allergies No Known Allergies Allergy (Verified 08/06/25 09:30) HPI HPI 8 week follow up: Details: 20-year-old male patient previously well, with no significant health issues who I am seeing for f/u for small bowel crohns RECAP I saw him as in patient 01/2025 for abdominal pain and abn imaging, concern for IBD He noted 2 d of right lower abdo pain going into the back 6/10 in severity, worse with food and associated with constipation, and with nausea. He had CT imaging with multiple dilated small-bowel loops, possible ileus versus partial/early small-bowel obstruction. He had colo at [facility] apparently normal also with an EGD as well. He does say he has these attacks on and off for the last 2 years. I repeated EGD< colo 06/12/25 erosive esophagitis noted poor prep on colon bx - inactive duodenitis, colo bx were nml INTERIM: He started entyvio pain is gone now no nausea or vomiting appetite is good stools are normal he is taking pantoprazole daily EXAM: GENERAL: The patient is well developed and nontoxic. VITAL SIGNS:see workflow HEENT: Nonicteric sclerae, PERRLA, EOMI. Oropharynx clear. Moist mucous membranes. Conjunctivae appear well perfused. No thyroid mass. CHEST: Chest wall is nontender. HEART: Regular rate and rhythm without murmurs. LUNGS: Clear to auscultation bilaterally. ABDOMEN: Soft, positive bowel sounds, nontender, no organomegaly.no flank tenderness SKIN: No rash, no excessive bruising, petechiae, or purpura. NEUROLOGIC: Cranial nerves II-XII intact without motor/sensory deficit. Psych: normal affect A/P: 1/ Crohns based on imaging appearances, small bowel involvement PLAN: /1 - cont entyvio 2/ Can hold on repeat colo for the moment 3/ cont with PPI PFSH Medical History IBS (irritable bowel syndrome) Surgical History Hx of colonoscopy History of esophagogastroduodenoscopy (EGD) Social History Household Members: Family Housing: House Do you presently have visiting nurse or other home services: No Patient Tobacco Use Status: Never used Tobacco service: No Physical Exam Vital Signs: BMI result Body Mass Index 23.8 Assessment & Plan Assessment & Plan (1) Crohn's disease: Code(s): K50.90 - Crohn's disease, unspecified, without complications Category: Medical Plan: as above Coding Level of Care Code Est Pt Level 3 (66268) Diagnoses Crohn's disease K50.90
[2025-08-06 09:30] VITALS: BP 145/91; PULSE 64; BMI 23.8
--- OUTSIDE RECORDS SUMMARY | 2025-08-06 10:35 | XMS_ITS | Clinical Summary ---
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
== END 2025-08-06 09:38 | disposition home or self-care (01) ==
LOC: HO.HGI 09:24
PROVIDERS: PCP Internal Medicine; Visit Provider Internal Medicine Gastroenterology
DX: K50.90 Crohn's disease, unspecified, without complications (principal)
CPT/HCPCS: 99213

== ENCOUNTER 2025-08-06 11:00 | Outpatient (RCR) | payer OTHER, SELFPAY ==
[2025-06-25 13:16] VITALS: BP 137/78; PULSE 79; RESP 16; TEMP 37; O2SAT 100
[2025-07-09 07:32] VITALS: BP 136/78; PULSE 71; RESP 16; TEMP 37; O2SAT 98
[2025-08-06 10:54] VITALS: BP 138/70; PULSE 70; RESP 16; TEMP 36.9; O2SAT 100
== END 2025-08-06 11:53 | disposition home or self-care (01) ==
LOC: HO.INF 11:00
PROVIDERS: Visit Provider Internal Medicine Gastroenterology
DX: K50.90 Crohn's disease, unspecified, without complications (principal)
CPT/HCPCS: 96365; J3380